=== PATIENT | female | born 1980 | race Hispanic/Latino ===

== ENCOUNTER 2024-09-28 10:21 | Emergency (ER) | payer OTHER ==
[~2024-09-28] VITALS: Ht 160 cm; Wt 65.0 kg
[2024-09-28] MEDS: ACETAMINOPHEN 325 MG TAB PO ONE (11:01)
[2024-09-28] MEDS: SODIUM CHLORIDE 0.9% 1000ML 1,000 ML IV ONE (11:16)
[2024-09-28] MEDS: KETOROLAC TROMETHAMINE 30 MG/ML VIAL IV ONE (12:11)
[2024-09-28] MEDS: CEFTRIAXONE 1 GM VIAL IM ONE (12:40)
[2024-09-28] MEDS ORDERED: SODIUM CHLORIDE 0.9% 1000ML 1,000 ML IV ONE (12:45)
[2024-09-28 13:36] VITALS: PULSE 90; RESP 16; TEMP 98.5; O2SAT 96
[2024-09-28] MEDS ORDERED: CIPRO500 MG PO (13:57)
[2024-09-28] MEDS: CIPROFLOXACIN 500 MG TAB PO SCH (14:16)
== END 2024-09-28 14:20 | disposition home or self-care (01) ==
LOC: FSED 10:23
DX: R50.9 Fever, unspecified (principal); N39.0 Urinary tract infection, site not specified; N12 Tubulo-interstitial nephritis, not specified as acute or chronic; E86.0 Dehydration; E86.1 Hypovolemia
CPT/HCPCS: 74176; 80048; 80076; 81003; 81025; 83605; 85025; 87040; 87086; 87186; 99284; J0696; J1885; J7030

== ENCOUNTER 2025-05-25 11:59 | Emergency (ER) | payer OTHER ==
[~2025-05-25] VITALS: Ht 160 cm; Wt 65.8 kg
[~2025-05-25 11:59] MED LIST: CIPRO500 MG PO
[2025-05-25 12:05] VITALS: PULSE 91; RESP 18; TEMP 98.4
[2025-05-25 13:03] LABS: LEUKOCYTE ESTERASE ,URINE NEGATIVE (NEGATIVE); PROTEIN,URINE DIPSTICK NEGATIVE (NEGATIVE); URINE UROBILINOGEN 0.2 mg/dL (0.2 - 1)
[2025-05-25 13:04] LABS: EPITHELIAL CELLS,URINE FEW /LPF; WBC,URINE (MAN) 0-5 /HPF (0-5)
[2025-05-25] MEDS: KETOROLAC TROMETHAMINE 30 MG/ML VIAL IV STA (13:12)
[2025-05-25] MEDS: SODIUM CHLORIDE 0.9% 1000ML 1,000 ML IV ONE (13:13)
[2025-05-25 13:14] LABS: BASOPHILS % 0.4 % (0.0-1.0); EOSINOPHILS % 3.6 % (0.0-6.0); LYMPHOCYTES % 26.6 % (18.0-39.1); MONOCYTES % 6.6 % (4.4-11.3); NEUTROPHILS % 62.3 % (38.7-80.0); RED CELL DISTRIBUTION WIDTH 12.4 % (11.7-14.4)
[2025-05-25 13:32] LABS: EST GLOMERULAR FILTRATION RATE 88.0 ML/MIN (>=60)
[2025-05-25] MEDS ORDERED: FLOMAX0.4 MG PO (14:42)
[2025-05-25] MEDS ORDERED: ULTRAM 50MG50 MG PO (14:42)
[2025-05-25 15:00] VITALS: BP 120/75; PULSE 74; RESP 14; O2SAT 100
== END 2025-05-25 15:00 | disposition home or self-care (01) ==
LOC: ER 12:09
DX: R30.0 Dysuria (principal); N20.0 Calculus of kidney; M54.50 Low back pain, unspecified
CPT/HCPCS: 36415; 74176; 80053; 81001; 83690; 84702; 85025; 99284; J1885; J7030